=== PATIENT | male | born 1960 | race Caucasian/White ===

== ENCOUNTER 2016-05-19 | Outpatient (CLI) | payer SELFPAY | END 2016-05-19 11:59 | disposition EMS.NT | DX: R00.2 Palpitations (principal) ==

== ENCOUNTER 2020-09-18 14:06 | Outpatient (CLI) | payer SELFPAY | END 2020-09-18 14:07 | disposition short-term general hospital (02) | LOC: EMS 14:06 | DX: Z04.1 Encounter for examination and observation following transport accident (principal); M54.9 Dorsalgia, unspecified | CPT/HCPCS: A0425; A0429 ==